=== PATIENT | female | born 2000 | race American Indian/Alaskan Native ===

== ENCOUNTER 2021-06-27 08:20 | Emergency (ER) | payer MEDICAID ==
[2021-06-27 09:03] VITALS: BP 130/64
[2021-06-27] MEDS ORDERED: IBUPROFEN 800 MG TAB PO ONE (09:56)
[2021-06-27] MEDS ORDERED: LIDOCAINE-MPF (1%) 10 MG/1 ML VIAL 5 ML INFILTRATI ONE (09:56)
--- NOTE | 2021-06-27 09:57 | Emergency Department Report ---
Abscess Boil HPI - HPI Chief Complaint: Pain General Stated Complaint: BACK/BUTT PAIN Time Seen by Provider: 06/27/21 09:48 Duration: 2 Days Location: Sacral/Pilonidal Severity: Mild History: Yes Pain, No Fever, No Purulent Drainage, No Numbness, No Foreign Body, No Previous History, No Insect Bite HPI: Patient is a pleasant 20-year-old that comes in with an abscess over her tailbone. It started yesterday. She has not had 1 before. She has no fever or chills. Home Medications: Previous Rx's Medication Instructions Recorded Last Taken Type Ibuprofen [Motrin] 800 mg PO Q8HR PRN #30 tablet 06/27/21 Unknown Rx cephALEXin [Keflex] 500 mg PO Q12HR #20 cap 06/27/21 Unknown Rx Allergies/Adverse Reactions: Allergies Allergy/AdvReac Type Severity Reaction Status Date / Time No Known Allergies Allergy Verified 06/27/21 09:03 ED Review of Systems ROS: Stated complaint: BACK/BUTT PAIN Other details as noted in HPI Comment: All other systems reviewed and negative ED Past Medical Hx - Past Medical History Previous Medical History?: No - Surgical History Past Surgical History?: No - Family History Family history: no significant - Social History Smoking Status: Never Smoker Substance Use Type: None - Medications Home Medications: Home Medications Medication Instructions Recorded Confirmed Last Taken Type Ibuprofen [Motrin] 800 mg PO Q8HR PRN #30 tablet 06/27/21 Unknown Rx cephALEXin [Keflex] 500 mg PO Q12HR #20 cap 06/27/21 Unknown Rx ED Abscess Boil Physical Exam - Exam General: Vital signs noted. No distress. Alert and acting appropriately. Size: 2 cm Exam: Yes Tenderness, Yes Normal Neurologic Exam, Yes Normal Circulation, No Fluctuance, No Surrounding Cellulites/Erythema, No Lymphangitis, No Crepitation, No Heart Murmur I & D Note - I & D Note I & D Note: None ED Course Vital Signs 06/27/21 09:02 Temperature 98.0 F Pulse Rate 94 H Respiratory 16 Rate Blood Pressure 130/64 O2 Sat by Pulse 100 Oximetry Critical care attestation.: If time is entered above; I have spent that time in minutes in the direct care of this critically ill patient, excluding procedure time. ED Medical Decision Making - Medical Decision Making No I&D required the area is small and hard. No area of flatulence to I&D. Patient being treated conservatively. Has been educated on Epson salt and warm soaks. I have given her a gram of Rocephin IM in the ER. She will discharge home with Keflex for 10 days. Mother and child verbalized understanding of discharge plan of care. Patient discharged home with education on diet, activity, medications, wound care and follow-up. Vital Signs 06/27/21 09:02 Temperature 98.0 F Pulse Rate 94 H Respiratory 16 Rate Blood Pressure 130/64 O2 Sat by Pulse 100 Oximetry - Differential Diagnosis Simple abscess over tailbone ED Disposition Clinical Impression: Abscess Disposition: 01 HOME / SELF CARE / HOMELESS Is pt being admited?: No Does the pt Need Aspirin: No Condition: Stable Instructions: Skin Abscess Additional Instructions: Warm baths with Epson salts will help The area will come to ahead like a pimple and pop This is what we wanted to do [id number] Tylenol can be used for pain Medications as ordered today until gone After you finish the medications follow-up with primary care to make sure this is resolved I have given you referral below Prescriptions: cephALEXin [Keflex] 500 mg PO Q12HR #20 cap Ibuprofen [Motrin] 800 mg PO Q8HR PRN #30 tablet PRN Reason: Pain, Moderate (4-6) Referrals: JENIFER STONER MD [Staff Physician] - 3-5 Days Forms: Accompanied Note, Work/School Release Form(ED) Time of Disposition: 09:56
== END 2021-06-27 11:30 | disposition home or self-care (01) ==
LOC: ED 08:20
DX: L05.01 Pilonidal cyst with abscess (principal)
CPT/HCPCS: 96372; 99282; J0696; J3490